=== PATIENT | female | born 1990 | race Caucasian/White ===

== ENCOUNTER 2022-01-22 20:26 | Emergency (ER) | payer OTHER ==
[~2022-01-22] VITALS: Ht 157.5 cm; Wt 62.6 kg
[2022-01-22 20:30] VITALS: BP 119/79
--- NOTE | 2022-01-22 20:33 | NUR ---
PT GARY BERTRAND. TAKEN TO BED 12
--- NOTE | 2022-01-22 20:41 | NUR ---
Dr. Aaron examining patient.
[2022-01-22] MEDS ORDERED: KETOROLAC 60 MG/2 ML VIAL IM ONE ×2 (20:45→22:14)
--- NOTE | 2022-01-22 20:58 | NUR ---
X-Ray at bedside.
[2022-01-22] MEDS ORDERED: NAPR-54 PO (22:40)
[2022-01-22 22:48] VITALS: BP 120/79
--- NOTE | 2022-01-22 22:48 | NUR ---
Patient discharged with v/s stable. Written and verbal after care instructions given and explained by Dr. Aaron. Patient alert, oriented and verbalized understanding of instructions. Ambulatory with steady gait. All questions addressed prior to discharge. ID band removed. Patient advised to follow up with PMD. Rx of Naproxen given. Patient educated on indication of medication including possible reaction and side effects. Opportunity to ask questions provided and answered.
== END 2022-01-22 22:47 | disposition home or self-care (01) ==
LOC: MED 20:26
DX: S83.92XA Sprain of unspecified site of left knee, initial encounter (principal); Z88.0 Allergy status to penicillin; Z98.890 Other specified postprocedural states; W18.30XA Fall on same level, unspecified, initial encounter; Y93.89 Activity, other specified; Y92.89 Other specified places as the place of occurrence of the external cause; Y99.8 Other external cause status
CPT/HCPCS: 73560; 96372; 99283; J1885; Q0092